=== PATIENT | male | born 1975 | race Caucasian/White ===

== ENCOUNTER 2018-09-25 13:40 | Emergency (ER) | payer OTHER, MEDICAID, SELFPAY ==
[2018-09-25 13:53] VITALS: BP 132/79; PULSE 86; RESP 18; TEMP 36.6; O2SAT 97; BMI 30.8
[2018-09-25] MEDS: SODIUM CHLORIDE 0.9% 1,000 ML 1000 ML IV (14:30)
[2018-09-25 14:31] LABS: Add Manual Diff / Slide Review NO; Basophils Absolute Auto 0 /uL (0-100); Basophils Percent Auto 0.4 % (0-2); Eosinophils Absolute Auto 100 /uL (0-450); Eosinophils Percent Auto 1.2 % (2-4); Hematocrit 43.7 % (41-53); Hemoglobin 15.2 g/dL (13.5-17.5); Lymphocytes Absolute Auto 2400 /uL (1100-4500); Lymphocytes Percent Auto 26.8 % (25-40); Mean Corpuscular HGB Conc 34.7 % (30-36); Mean Corpuscular Hemoglobin 30.8 PG (26-34); Mean Corpuscular Volume 88.8 fL (80-100); Monocytes Absolute Auto 500 /uL (0-900); Monocytes Percent Auto 5.4 % (3-14); Neutrophils Absolute Auto 5800 /uL (1500-7000); Neutrophils Percent Auto 66.2 % (50-75); Platelet Count 264 X10^3/uL (150-400); Red Blood Cell Count 4.92 X10^6/uL (4.5-5.9); Red Cell Distribution Width 12.2 % (11.6-14.8); White Blood Cell Count 8.8 X10^3/uL (4.5-11.0)
[2018-09-25 14:45] LABS: BUN Creatinine Ratio 18.9 (6-22); Blood Urea Nitrogen 17 mg/dL (9-20); Carbon Dioxide 26 mmol/L (22-32); Chloride 103 mmol/L (98-107); Estimated Glomerular Filt Rate > 60.0 mL/min (>60); Glucose 109 mg/dL (70-100); HEMOLYSIS < 15 (0-50); Potassium 4.4 mmol/L (3.4-5.1); Sodium 139 mmol/L (137-145)
[2018-09-25 16:59] VITALS: BP 128/75; PULSE 85; RESP 16; O2SAT 98
--- NOTE | 2018-09-25 17:30 | DI.CT.S_ITS ---
PROCEDURE: CT HEAD/BRAIN WO CON INDICATIONS: dizziness, visual changes TECHNIQUE: Noncontrast 4.5 mm thick angled axial sections acquired from the foramen magnum to the vertex, with coronal and sagittal reformats. For radiation dose reduction, the following was used: automated exposure control, adjustment of mA and/or kV according to patient size. COMPARISON: [facility], CT, CT HEAD WITHOUT CONTRAST, 06/17/2017, 16:05. FINDINGS: Image quality: Excellent. CSF spaces: Basal cisterns are patent. No extra-axial fluid collections. Ventricles are normal in size and shape. Brain: No midline shift. No intracranial masses or hemorrhage. Woodruff-white matter interface is normal. Skull and face: Calvarium and visualized facial bones are intact, without suspicious lesions. Sinuses: Visualized sinuses and mastoids are clear. IMPRESSION: 1. No acute intracranial abnormalities. Dictated by: Peter Graham M.D. on 09/25/2018 at 19:00 Approved by: Peter Graham M.D. on 09/25/2018 at 19:02
[2018-09-25 17:33] VITALS: BP 120/73; PULSE 76; RESP 17; O2SAT 96
[2018-09-25] MEDS: MECLIZINE HCL 12.5 MG TABLET 25 MG PO (17:48)
--- NOTE | 2018-09-25 19:49 | ED.DIZZY ---
HPI - Dizziness <TIFFANIE Palmer - Last Filed: 09/26/18 01:59> General Chief Complaint: Dizziness Stated Complaint: lightheaded,dizzy,visual aura Time Seen by Provider: 09/25/18 16:56 Source: patient and family Mode of arrival: ambulatory Limitations: no limitations History of Present Illness HPI Narrative: This is a 42-year-old male, smoker, who presents with his father with chief complain of lightheadedness, dizziness and he feels the floor is moving, intermittent nonbloody diarrhea for 2 week with low abdominal cramps, visual auras such as sparkles in dark and light hues. He reports his diarrhea is average 2 to 4 times a day. She states he has diarrhea episode about every 2 months or so but usually lasts 1 week. He denies any urinary symptoms or decreased urine output. He denies chest pain, breathing difficulty, fever, emesis, epigastric pain, decreased vision. The patient also reports head pressure but no acute pain. He reports nasal congestion and postnasal drips but denies known to have seasonal allergy or having sore throat. He reports he has been suffering from dizziness for last couple of years and had follow-up with ENT specialist, associate professor of communication and had a workup done. He states was let go from his job recently due to his problem with the dizziness. He at times is unable to drive due to intermittent severe dizziness. He also reports having migraine headache a couple of times a year. Related Data Home Medications Medication Instructions Recorded Confirmed buspirone 10 mg PO DAILY 09/25/18 09/25/18 lisinopril 40 mg PO DAILY 09/25/18 09/25/18 metoprolol succinate 25 mg PO DAILY 09/25/18 09/25/18 Allergies Allergy/AdvReac Type Severity Reaction Status Date / Time Penicillins Allergy Verified 09/25/18 13:53 Review of Systems <TIFFANIE Palmer - Last Filed: 09/26/18 01:59> Review of Systems General: See HPI HEENT: See HPI Respiratory: Denies dyspnea, cough, wheezing, hemoptysis, sputum. Cardiovascular: Denies chest pain, palpitations, orthopnea, edema. Gastrointestinal: See HPI : See HPI Musculoskeletal: Denies weakness, joint pain or bony pain. Skin: Denies rash, skin lesions, or other. Neurologic: Denies weakness, headache, numbness, change in speech, confusion, seizures, incoordination. Psychiatric: No concerning psychosocial issues. 12-point review of systems is negative except for those stated above. PFSH <TIFFANIE Palmer - Last Filed: 09/26/18 01:59> Medical History (Updated 09/26/18 @ 01:37 by TIFFANIE Palmer) HTN (hypertension) (Acute) SVT (supraventricular tachycardia) (Acute) Social History Smoking Status: Current every day smoker Social History Smoking Status: Current every day smoker Exam <TIFFANIE Palmer - Last Filed: 09/26/18 01:59> Narrative Exam Narrative: GEN: Alert, oriented x 3, well appearing and nourished, and in no acute distress. Head: Normal cephalic, atraumatic. No scalp or temporal tenderness, palpable mass or rash. EYES: Pupils are equal, round, and reactive to light and accommodation. Extraocular muscles are intact bilaterally. There is no subconjunctival hemorrhage, exudate and sclera non-icteric. ENT: Bilateral auditory canals and tympanic membranes. Hearing grossly intact. Nose without bleeding. Purulent dischargein R nare, No septal hematoma or deviation. Turbinate with erythema or swelling. Facial sinuses nontender to palpate. Mucous membrane moist, no mucosal lesion. Throat without erythema, tonsillar hypertrophy or exudate. Uvula in midline, airway patent. Neck: Trachea in midline. No JVD, non-tender without lymphadenopathy. No masses or thyroid megaly. Supple, non-tender and no meningeal signs. CARDIAC: Normal regular rate and rhythm without murmurs, gallops, or rubs. No chest wall tenderness. No peripheral edema, cyanosis or pallor. Capillary refill is less than 2 seconds. No carotid bruits. RESPIRATORY: Lungs are cleat to auscultate bilaterally. No cough, wheezes, rales, or rhonchi. No stridor, respiratory distress, increase work of breathing, or accessary muscle used. ABD: Abdomen soft, nontender and non-distended. No guarding or rebound tenderness to palpate. Bowel sounds are normal in all 4 quadrants. There is no palpable masses or organomegaly. EXT: Full painless ROM of all extremities with no loss of sensation, strength, effusion or edema. SKIN: Warm, dry, normal color for patient. No erythema, lesions or rash. BACK: Nontender without deformity or crepitance. No flank tenderness. NEUROLOGICAL: Alert and oriented to place, time and person. Sensation and motor function intact bilaterally. No facial droops, dysphasia. CN2-12 grossly intact bilaterally. PSYCHIATRIC: Good judgement and reason, without hallucinations, abnormal affect or abnormal behaviors during the examination. Initial Vital Signs Initial Vital Signs: Vital Signs Temperature 97.9 F 09/25/18 13:53 Pulse Rate 86 09/25/18 13:53 Respiratory Rate 18 09/25/18 13:53 Blood Pressure 132/79 09/25/18 13:53 Pulse Oximetry 97 09/25/18 13:53 <Maeve Marlow DO - Last Filed: 09/27/18 18:27> Initial Vital Signs Initial Vital Signs: Vital Signs Temperature 97.9 F 09/25/18 13:53 Pulse Rate 86 09/25/18 13:53 Respiratory Rate 18 09/25/18 13:53 Blood Pressure 132/79 09/25/18 13:53 Pulse Oximetry 97 09/25/18 13:53 Course <TIFFANIE Palmer - Last Filed: 09/26/18 01:59> Orders Ordered: Discontinued Medications Sodium Chloride (Normal Saline 0.9%) 1,000 mls @ 1,000 mls/hr IV BOLUS ONE Stop: 09/25/18 15:07 Last Infusion: 09/25/18 15:49 Dose: 0 mls/hr Admin: 09/25/18 14:30 Dose: 1,000 mls/hr Meclizine HCl (Antivert) 25 mg PO NOW ONE Stop: 09/25/18 17:26 Last Admin: 09/25/18 17:48 Dose: 25 mg Vital Signs - 8 hr 09/25/18 17:33 Pulse Rate 76 Respiratory Rate 17 Blood Pressure [Right Arm] 120/73 Pulse Oximetry 96 <Maeve Marlow DO - Last Filed: 09/27/18 18:27> Orders Ordered: Discontinued Medications Sodium Chloride (Normal Saline 0.9%) 1,000 mls @ 1,000 mls/hr IV BOLUS ONE Stop: 09/25/18 15:07 Last Infusion: 09/25/18 15:49 Dose: 0 mls/hr Admin: 09/25/18 14:30 Dose: 1,000 mls/hr Meclizine HCl (Antivert) 25 mg PO NOW ONE Stop: 09/25/18 17:26 Last Admin: 09/25/18 17:48 Dose: 25 mg Vital Signs - 8 hr 09/25/18 17:33 Pulse Rate 76 Respiratory Rate 17 Blood Pressure [Right Arm] 120/73 Pulse Oximetry 96 MDM - Dizziness <TIFFANIE Palmer - Last Filed: 09/26/18 01:59> Differential Diagnosis Likely benign paroxysmal positional vertigo, orthostatic hypotension, transient cerebral ischemia and other (brain mass, dehydration) Medical Records Attestation: I reviewed the patient's medical records. Lab Data Attestation: I reviewed the patient's lab results. Result diagrams: 09/25/18 14:20 09/25/18 14:20 Lab Results 09/25/18 09/25/18 Range/Units 14:20 14:20 WBC 8.8 (4.5-11.0) X10^3/uL RBC 4.92 (4.5-5.9) X10^6/uL Hgb 15.2 (13.5-17.5) g/dL Hct 43.7 (41-53) % MCV 88.8 (80-100) fL MCH 30.8 (26-34) PG MCHC 34.7 (30-36) % RDW 12.2 (11.6-14.8) % Plt Count 264 (150-400) X10^3/uL Neut % (Auto) 66.2 (50-75) % Lymph % (Auto) 26.8 (25-40) % Holmes % (Auto) 5.4 (3-14) % Eos % (Auto) 1.2 L (2-4) % Baso % (Auto) 0.4 (0-2) % Neut # (Auto) 5800 (0726-0456) /uL Lymph # (Auto) 2400 (0501-4508) /uL Holmes # (Auto) 500 (0-900) /uL Eos # (Auto) 100 (0-450) /uL Baso # (Auto) 0 (0-100) /uL Sodium 139 (137-145) mmol/L Potassium 4.4 (3.4-5.1) mmol/L Chloride 103 (98-107) mmol/L Carbon Dioxide 26 (22-32) mmol/L BUN 17 (9-20) mg/dL Creatinine 0.90 (0.66-1.25) mg/dL Estimated GFR > 60.0 (>60) mL/min BUN/Creatinine Ratio 18.9 (6-22) Glucose 109 H (70-100) mg/dL Calcium 10.0 (8.4-10.2) mg/dL Urine Dip Bedside Urine Glucose Negative Bedside Urine Bilirubin - Negative Bedside Urine Ketone +/- 5 Urine Specific [place] 1.020 Bedside Urine Occult Blood - Negative Bedside Urine pH 6.0 Bedside Urine Protein - Negative Bedside Urine Urobilinogen - Negative Bedside Urine Nitrite - Negative Bedside Urine Leukocytes - Negative Esterase Imaging Data CT scan - head: Radiologist's impression: [address] [address] [address] Scan Report Signed Patient: Andre Salas WMR#: [id number] : 1975Acct:[id number] Age/Sex: 42 / MDate of Service: 09/25/18 Loc: ED Accession Number: [id number] Procedure: CT head/brain wo con Ordering Provider: Teofilo Pruitt PROCEDURE: CT HEAD/BRAIN WO CON INDICATIONS: dizziness, visual changes TECHNIQUE: Noncontrast 4.5 mm thick angled axial sections acquired from the foramen magnum to the vertex, with coronal and sagittal reformats. For radiation dose reduction, the following was used: automated exposure control, adjustment of mA and/or kV according to patient size. COMPARISON: [facility], CT, CT HEAD WITHOUT CONTRAST, 06/17/2017, 16:05. FINDINGS: Image quality: Excellent. CSF spaces: Basal cisterns are patent. No extra-axial fluid collections. Ventricles are normal in size and shape. Brain: No midline shift. No intracranial masses or hemorrhage. Woodruff-white matter interface is normal. Skull and face: Calvarium and visualized facial bones are intact, without suspicious lesions. Sinuses: Visualized sinuses and mastoids are clear. IMPRESSION: 1. No acute intracranial abnormalities. Dictated by: Peter Graham M.D. on 09/25/2018 at 19:00 Approved by: Peter Graham M.D. on 09/25/2018 at 19:02 ECG Data Attestation: I personally reviewed and interpreted this ECG as follows: Prior ECG tracings: not available for review Interpretation: Sinus rhythm rate in 69, normal [place], no ST elevation or depression MDM Narrative Medical decision making narrative: This is a 42-year-old gentleman who presented to ED with his father in chief complaint of dizziness, mild nausea, visual aura, diarrhea for last 2 weeks with mild abdominal cramping discomfort, sinus drainage and pressure. He endorses no constitutional symptoms such as fever chills vomiting. The patient reports there is no acute or major changes from his previous dizziness symptoms. He was recently that go from his job due to not being able to perform because of dizziness. He follows up with Dr. Dang and [facility] and is hoping to find a medical provider. He was evaluated by ENT specialist and was told he does not have vertigo. He also was evaluated by associate professor of communication for his dizziness, then he was diagnosed with SVT and hypertension which now he is getting treated with lisinopril and metoprolol. He reports feeling improved with lightheadedness and visual aura after receiving 1 L of IV fluid. Patient was medicated with meclizine 25 mg but reports there was not much of improvement. Head CT was obtained and indicates no acute intracranial findings and his sinus and mastoids are clear. I discussed in length with patient and his father of test findings. They both verbalized understanding to follow up with primary care physician for further evaluation and treatment. [facility] resources contact phone number was provided to patient as requested. Patient is in no acute distress at the time of discharge. Return to ED precautions were reviewed with patient. The patient's diarrhea is not to be concerned for him at this time and he thinks it may be related to food allergies that he does not aware. <Maeve Marlow, - Last Filed: 09/27/18 18:27> Lab Data Lab Results 09/25/18 09/25/18 Range/Units 14:20 14:20 WBC 8.8 (4.5-11.0) X10^3/uL RBC 4.92 (4.5-5.9) X10^6/uL Hgb 15.2 (13.5-17.5) g/dL Hct 43.7 (41-53) % MCV 88.8 (80-100) fL MCH 30.8 (26-34) PG MCHC 34.7 (30-36) % RDW 12.2 (11.6-14.8) % Plt Count 264 (150-400) X10^3/uL Neut % (Auto) 66.2 (50-75) % Lymph % (Auto) 26.8 (25-40) % Holmes % (Auto) 5.4 (3-14) % Eos % (Auto) 1.2 L (2-4) % Baso % (Auto) 0.4 (0-2) % Neut # (Auto) 5800 (7242-3845) /uL Lymph # (Auto) 2400 (8052-7841) /uL Holmes # (Auto) 500 (0-900) /uL Eos # (Auto) 100 (0-450) /uL Baso # (Auto) 0 (0-100) /uL Sodium 139 (137-145) mmol/L Potassium 4.4 (3.4-5.1) mmol/L Chloride 103 (98-107) mmol/L Carbon Dioxide 26 (22-32) mmol/L BUN 17 (9-20) mg/dL Creatinine 0.90 (0.66-1.25) mg/dL Estimated GFR > 60.0 (>60) mL/min BUN/Creatinine Ratio 18.9 (6-22) Glucose 109 H (70-100) mg/dL Calcium 10.0 (8.4-10.2) mg/dL Urine Dip Bedside Urine Glucose Negative Bedside Urine Bilirubin - Negative Bedside Urine Ketone +/- 5 Urine Specific [place] 1.020 Bedside Urine Occult Blood - Negative Bedside Urine pH 6.0 Bedside Urine Protein - Negative Bedside Urine Urobilinogen - Negative Bedside Urine Nitrite - Negative Bedside Urine Leukocytes - Negative Esterase Discharge Plan Departure Patient Disposition: Home Clinical Impression: Dizziness Diarrhea Qualifiers: Diarrhea type: unspecified type Qualified Code(s): R19.7 - Diarrhea, unspecified Discharge Date/Time: 09/25/18 20:10 Interventions: ED Discharge Assessment Last Done: 09/25/18 20:09 Instructions: DI for Abdominal Pain-Adult, DI for Dizziness-Nonvertigo Activity Restrictions/Additional Instructions: You have been diagnosed with [ dizziness, abdominal cramping pain and diarrhea, nasal congestion. There no acute finding per today's head CT. You're blood test looks good as well. Says IV fluid help you with your dizziness and vision problem you might have been mildly dehydrated]. What to do: *Take your medications as directed. AT this time, no new medication to go home since the Meclizine had not help with your symptoms. Your nose appears to be congested per exam today. *Follow up with your primary care provider in 2-3 days, call for an appointment. Let them know you were seen in the ED and that we asked you to be seen in follow up. *Return to ED if you have any new, worsening, or concerning symptoms, such as [worsening dizziness, nausea/vomiting, extremity weakness, severe headache, unable to tolerate fluids, chest pain, breathing difficulty, fainting episodes, any acute concerns]. Prescriptions: No Action lisinopril 10 mg Tablet 40 mg PO DAILY RF: 0 metoprolol succinate 25 mg Baljinder Fonseca,Er 24hr Dose Pack 25 mg PO DAILY RF: 0 buspirone 10 mg Tablet 10 mg PO DAILY RF: 0 Referrals: [facility] Resources [Outside] <Maeve Marlow DO - Last Filed: 09/27/18 18:27> Cosign ED Attending Cosignature Attestation: I was immediately available in the department for consultation. This documentation has been reviewed and I agree with assessment and plan. Supervised by Maeve Marlow DO
--- NOTE | 2018-09-26 01:59 | ED_ITS ---
HPI - Dizziness <TIFFANIE Palmer - Last Filed: 09/26/18 01:59> General Chief Complaint: Dizziness Stated Complaint: lightheaded,dizzy,visual aura Time Seen by Provider: 09/25/18 16:56 Source: patient and family Mode of arrival: ambulatory Limitations: no limitations History of Present Illness HPI Narrative: This is a 42-year-old male, smoker, who presents with his father with chief complain of lightheadedness, dizziness and he feels the floor is moving, intermittent nonbloody diarrhea for 2 week with low abdominal cramps, visual auras such as sparkles in dark and light hues. He reports his diarrhea is average 2 to 4 times a day. She states he has diarrhea episode about every 2 months or so but usually lasts 1 week. He denies any urinary symptoms or decreased urine output. He denies chest pain, breathing difficulty, fever, emesis, epigastric pain, decreased vision. The patient also reports head pressure but no acute pain. He reports nasal congestion and postnasal drips but denies known to have seasonal allergy or having sore throat. He reports he has been suffering from dizziness for last couple of years and had follow-up with ENT specialist, console attendant and had a workup done. He states was let go from his job recently due to his problem with the dizziness. He at times is unable to drive due to intermittent severe dizziness. He also reports having migraine headache a couple of times a year. Related Data Home Medications Medication Instructions Recorded Confirmed buspirone 10 mg PO DAILY 09/25/18 09/25/18 lisinopril 40 mg PO DAILY 09/25/18 09/25/18 metoprolol succinate 25 mg PO DAILY 09/25/18 09/25/18 Allergies Allergy/AdvReac Type Severity Reaction Status Date / Time Penicillins Allergy Verified 09/25/18 13:53 Review of Systems <TIFFANIE Palmer - Last Filed: 09/26/18 01:59> Review of Systems General: See HPI HEENT: See HPI Respiratory: Denies dyspnea, cough, wheezing, hemoptysis, sputum. Cardiovascular: Denies chest pain, palpitations, orthopnea, edema. Gastrointestinal: See HPI : See HPI Musculoskeletal: Denies weakness, joint pain or bony pain. Skin: Denies rash, skin lesions, or other. Neurologic: Denies weakness, headache, numbness, change in speech, confusion, seizures, incoordination. Psychiatric: No concerning psychosocial issues. 12-point review of systems is negative except for those stated above. PFSH <TIFFANIE Palmer - Last Filed: 09/26/18 01:59> Medical History (Updated 09/26/18 @ 01:37 by TIFFANIE Palmer) HTN (hypertension) (Acute) SVT (supraventricular tachycardia) (Acute) Social History Smoking Status: Current every day smoker Social History Smoking Status: Current every day smoker Exam <TIFFANIE Palmer - Last Filed: 09/26/18 01:59> Narrative Exam Narrative: GEN: Alert, oriented x 3, well appearing and nourished, and in no acute distress. Head: Normal cephalic, atraumatic. No scalp or temporal tenderness, palpable mass or rash. EYES: Pupils are equal, round, and reactive to light and accommodation. Extraocular muscles are intact bilaterally. There is no subconjunctival hemorrhage, exudate and sclera non-icteric. ENT: Bilateral auditory canals and tympanic membranes. Hearing grossly intact. Nose without bleeding. Purulent dischargein R nare, No septal hematoma or deviation. Turbinate with erythema or swelling. Facial sinuses nontender to palpate. Mucous membrane moist, no mucosal lesion. Throat without erythema, tonsillar hypertrophy or exudate. Uvula in midline, airway patent. Neck: Trachea in midline. No JVD, non-tender without lymphadenopathy. No masses or thyroid megaly. Supple, non-tender and no meningeal signs. CARDIAC: Normal regular rate and rhythm without murmurs, gallops, or rubs. No chest wall tenderness. No peripheral edema, cyanosis or pallor. Capillary refill is less than 2 seconds. No carotid bruits. RESPIRATORY: Lungs are cleat to auscultate bilaterally. No cough, wheezes, rales, or rhonchi. No stridor, respiratory distress, increase work of breathing, or accessary muscle used. ABD: Abdomen soft, nontender and non-distended. No guarding or rebound tenderness to palpate. Bowel sounds are normal in all 4 quadrants. There is no palpable masses or organomegaly. EXT: Full painless ROM of all extremities with no loss of sensation, strength, effusion or edema. SKIN: Warm, dry, normal color for patient. No erythema, lesions or rash. BACK: Nontender without deformity or crepitance. No flank tenderness. NEUROLOGICAL: Alert and oriented to place, time and person. Sensation and motor function intact bilaterally. No facial droops, dysphasia. CN2-12 grossly intact bilaterally. PSYCHIATRIC: Good judgement and reason, without hallucinations, abnormal affect or abnormal behaviors during the examination. Initial Vital Signs Initial Vital Signs: Vital Signs Temperature 97.9 F 09/25/18 13:53 Pulse Rate 86 09/25/18 13:53 Respiratory Rate 18 09/25/18 13:53 Blood Pressure 132/79 09/25/18 13:53 Pulse Oximetry 97 09/25/18 13:53 <Maeve Marlow DO - Last Filed: 09/27/18 18:27> Initial Vital Signs Initial Vital Signs: Vital Signs Temperature 97.9 F 09/25/18 13:53 Pulse Rate 86 09/25/18 13:53 Respiratory Rate 18 09/25/18 13:53 Blood Pressure 132/79 09/25/18 13:53 Pulse Oximetry 97 09/25/18 13:53 Course <TIFFANIE Palmer - Last Filed: 09/26/18 01:59> Orders Ordered: Discontinued Medications Sodium Chloride (Normal Saline 0.9%) 1,000 mls @ 1,000 mls/hr IV BOLUS ONE Stop: 09/25/18 15:07 Last Infusion: 09/25/18 15:49 Dose: 0 mls/hr Admin: 09/25/18 14:30 Dose: 1,000 mls/hr Meclizine HCl (Antivert) 25 mg PO NOW ONE Stop: 09/25/18 17:26 Last Admin: 09/25/18 17:48 Dose: 25 mg Vital Signs - 8 hr 09/25/18 17:33 Pulse Rate 76 Respiratory Rate 17 Blood Pressure [Right Arm] 120/73 Pulse Oximetry 96 <Maeve Marlow DO - Last Filed: 09/27/18 18:27> Orders Ordered: Discontinued Medications Sodium Chloride (Normal Saline 0.9%) 1,000 mls @ 1,000 mls/hr IV BOLUS ONE Stop: 09/25/18 15:07 Last Infusion: 09/25/18 15:49 Dose: 0 mls/hr Admin: 09/25/18 14:30 Dose: 1,000 mls/hr Meclizine HCl (Antivert) 25 mg PO NOW ONE Stop: 09/25/18 17:26 Last Admin: 09/25/18 17:48 Dose: 25 mg Vital Signs - 8 hr 09/25/18 17:33 Pulse Rate 76 Respiratory Rate 17 Blood Pressure [Right Arm] 120/73 Pulse Oximetry 96 MDM - Dizziness <TIFFANIE Palmer - Last Filed: 09/26/18 01:59> Differential Diagnosis Likely benign paroxysmal positional vertigo, orthostatic hypotension, transient cerebral ischemia and other (brain mass, dehydration) Medical Records Attestation: I reviewed the patient's medical records. Lab Data Attestation: I reviewed the patient's lab results. Result diagrams: 09/25/18 14:20 09/25/18 14:20 Lab Results 09/25/18 09/25/18 Range/Units 14:20 14:20 WBC 8.8 (4.5-11.0) X10^3/uL RBC 4.92 (4.5-5.9) X10^6/uL Hgb 15.2 (13.5-17.5) g/dL Hct 43.7 (41-53) % MCV 88.8 (80-100) fL MCH 30.8 (26-34) PG MCHC 34.7 (30-36) % RDW 12.2 (11.6-14.8) % Plt Count 264 (150-400) X10^3/uL Neut % (Auto) 66.2 (50-75) % Lymph % (Auto) 26.8 (25-40) % [place] % (Auto) 5.4 (3-14) % Eos % (Auto) 1.2 L (2-4) % Baso % (Auto) 0.4 (0-2) % Neut # (Auto) 5800 (3467-4114) /uL Lymph # (Auto) 2400 (7720-1928) /uL [place] # (Auto) 500 (0-900) /uL Eos # (Auto) 100 (0-450) /uL Baso # (Auto) 0 (0-100) /uL Sodium 139 (137-145) mmol/L Potassium 4.4 (3.4-5.1) mmol/L Chloride 103 (98-107) mmol/L Carbon Dioxide 26 (22-32) mmol/L BUN 17 (9-20) mg/dL Creatinine 0.90 (0.66-1.25) mg/dL Estimated GFR > 60.0 (>60) mL/min BUN/Creatinine Ratio 18.9 (6-22) Glucose 109 H (70-100) mg/dL Calcium 10.0 (8.4-10.2) mg/dL Urine Dip Bedside Urine Glucose Negative Bedside Urine Bilirubin - Negative Bedside Urine Ketone +/- 5 Urine Specific [place] 1.020 Bedside Urine Occult Blood - Negative Bedside Urine pH 6.0 Bedside Urine Protein - Negative Bedside Urine Urobilinogen - Negative Bedside Urine Nitrite - Negative Bedside Urine Leukocytes - Negative Esterase Imaging Data CT scan - head: Radiologist's impression: [address] [address] [address] Scan Report Signed Patient: Andre Salas WMR#: [id number] : 1975Acct:[id number] Age/Sex: 42 / MDate of Service: 09/25/18 Loc: ED Accession Number: [id number] Procedure: CT head/brain wo con Ordering Provider: Teofilo Pruitt PROCEDURE: CT HEAD/BRAIN WO CON INDICATIONS: dizziness, visual changes TECHNIQUE: Noncontrast 4.5 mm thick angled axial sections acquired from the foramen magnum to the vertex, with coronal and sagittal reformats. For radiation dose reduction, the following was used: automated exposure control, adjustment of mA and/or kV according to patient size. COMPARISON: [facility], CT, CT HEAD WITHOUT CONTRAST, 06/17/2017, 16:05. FINDINGS: Image quality: Excellent. CSF spaces: Basal cisterns are patent. No extra-axial fluid collections. Ventricles are normal in size and shape. Brain: No midline shift. No intracranial masses or hemorrhage. [place]-white matter interface is normal. Skull and face: Calvarium and visualized facial bones are intact, without suspicious lesions. Sinuses: Visualized sinuses and mastoids are clear. IMPRESSION: 1. No acute intracranial abnormalities. Dictated by: Peter Graham M.D. on 09/25/2018 at 19:00 Approved by: Peter Graham M.D. on 09/25/2018 at 19:02 ECG Data Attestation: I personally reviewed and interpreted this ECG as follows: Prior ECG tracings: not available for review Interpretation: Sinus rhythm rate in 69, normal Fitzgerald, no ST elevation or depression MDM Narrative Medical decision making narrative: This is a 42-year-old gentleman who presented to ED with his father in chief complaint of dizziness, mild nausea, visual aura, diarrhea for last 2 weeks with mild abdominal cramping discomfort, sinus drainage and pressure. He endorses no constitutional symptoms such as fever chills vomiting. The patient reports there is no acute or major changes from his previous dizziness symptoms. He was recently that go from his job due to not being able to perform because of dizziness. He follows up with Dr. Dang and [facility] and is hoping to find a medical provider. He was evaluated by ENT specialist and was told he does not have vertigo. He also was evaluated by console attendant for his dizziness, then he was diagnosed with SVT and hypertension which now he is getting treated with lisinopril and metoprolol. He reports feeling improved with lightheadedness and visual aura after receiving 1 L of IV fluid. Patient was medicated with meclizine 25 mg but reports there was not much of improvement. Head CT was obtained and indicates no acute intracranial findings and his sinus and mastoids are clear. I discussed in length with patient and his father of test findings. They both verbalized understanding to follow up with primary care physician for further evaluation and treatment. [facility] resources contact phone number was provided to patient as requested. Patient is in no acute distress at the time of discharge. Return to ED precautions were reviewed with patient. The patient's diarrhea is not to be concerned for him at this time and he thinks it may be related to food allergies that he does not aware. <Maeve Marlow, - Last Filed: 09/27/18 18:27> Lab Data Lab Results 09/25/18 09/25/18 Range/Units 14:20 14:20 WBC 8.8 (4.5-11.0) X10^3/uL RBC 4.92 (4.5-5.9) X10^6/uL Hgb 15.2 (13.5-17.5) g/dL Hct 43.7 (41-53) % MCV 88.8 (80-100) fL MCH 30.8 (26-34) PG MCHC 34.7 (30-36) % RDW 12.2 (11.6-14.8) % Plt Count 264 (150-400) X10^3/uL Neut % (Auto) 66.2 (50-75) % Lymph % (Auto) 26.8 (25-40) % [place] % (Auto) 5.4 (3-14) % Eos % (Auto) 1.2 L (2-4) % Baso % (Auto) 0.4 (0-2) % Neut # (Auto) 5800 (3023-2496) /uL Lymph # (Auto) 2400 (4517-2408) /uL [place] # (Auto) 500 (0-900) /uL Eos # (Auto) 100 (0-450) /uL Baso # (Auto) 0 (0-100) /uL Sodium 139 (137-145) mmol/L Potassium 4.4 (3.4-5.1) mmol/L Chloride 103 (98-107) mmol/L Carbon Dioxide 26 (22-32) mmol/L BUN 17 (9-20) mg/dL Creatinine 0.90 (0.66-1.25) mg/dL Estimated GFR > 60.0 (>60) mL/min BUN/Creatinine Ratio 18.9 (6-22) Glucose 109 H (70-100) mg/dL Calcium 10.0 (8.4-10.2) mg/dL Urine Dip Bedside Urine Glucose Negative Bedside Urine Bilirubin - Negative Bedside Urine Ketone +/- 5 Urine Specific [place] 1.020 Bedside Urine Occult Blood - Negative Bedside Urine pH 6.0 Bedside Urine Protein - Negative Bedside Urine Urobilinogen - Negative Bedside Urine Nitrite - Negative Bedside Urine Leukocytes - Negative Esterase Discharge Plan Departure Patient Disposition: Home Clinical Impression: Dizziness Diarrhea Qualifiers: Diarrhea type: unspecified type Qualified Code(s): R19.7 - Diarrhea, unspecified Discharge Date/Time: 09/25/18 20:10 Interventions: ED Discharge Assessment Last Done: 09/25/18 20:09 Instructions: DI for Abdominal Pain-Adult, DI for Dizziness-Nonvertigo Activity Restrictions/Additional Instructions: You have been diagnosed with [ dizziness, abdominal cramping pain and diarrhea, nasal congestion. There no acute finding per today's head CT. You're blood test looks good as well. Says IV fluid help you with your dizziness and vision problem you might have been mildly dehydrated]. What to do: *Take your medications as directed. AT this time, no new medication to go home since the Meclizine had not help with your symptoms. Your nose appears to be congested per exam today. *Follow up with your primary care provider in 2-3 days, call for an appointment. Let them know you were seen in the ED and that we asked you to be seen in follow up. *Return to ED if you have any new, worsening, or concerning symptoms, such as [ worsening dizziness, nausea/vomiting, extremity weakness, severe headache, unable to tolerate fluids, chest pain, breathing difficulty, fainting episodes, any acute concerns]. Prescriptions: No Action lisinopril 10 mg Tablet 40 mg PO DAILY RF: 0 metoprolol succinate 25 mg Baljinder Fonseca,Er 24hr Dose Pack 25 mg PO DAILY RF: 0 buspirone 10 mg Tablet 10 mg PO DAILY RF: 0 Referrals: [facility] [Outside] <Maeve Marlow DO - Last Filed: 09/27/18 18:27> Cosign ED Attending Cosignature Attestation: I was immediately available in the department for consultation. This documentation has been reviewed and I agree with assessment and plan. Supervised by Maeve Marlow DO
== END 2018-09-25 20:10 | disposition home or self-care (01) ==
PROVIDERS: Emergency Medicine; Emergency Provider Nurse Practitioner Family
DX: R42 Dizziness and giddiness (principal); R19.7 Diarrhea, unspecified
CPT/HCPCS: 36591; 70450; 80048; 81003; 85025; 93005; 93010; 96360; 99283; 99285

== ENCOUNTER → 2019-11-05 14:00 | Outpatient (CLI) | payer OTHER, MEDICAID, SELFPAY ==
--- NOTE | 2019-11-05 14:02 | DI.RAD.S_ITS ---
PROCEDURE: XR RIBS RT MIN 3V W CXR 1V INDICATIONS: pain in right side of ribs TECHNIQUE: 2 views of the right ribs were acquired, along with a single view chest. COMPARISON: [facility], , XR CHEST 1 VIEW, 04/30/2019, 16:13. FINDINGS: Surgical changes and devices: Incidental note is made of a metallic body ornamentation artifact. Bones and chest wall: A marker is placed upon the area of clinical concern. Within this region, no displaced rib fracture or other significant rib abnormality can be seen. No rib fractures are seen elsewhere. No suspicious bony lesions. Overlying soft tissues appear unremarkable. Lungs and pleura: No pleural effusions or pneumothorax. Lungs appear clear. Mediastinum: Mediastinal contours appear normal. Heart size is normal. IMPRESSION: No displaced fractures can be seen. No pneumothorax is seen. Dictated by: Dangelo Weinberg M.D. on 11/05/2019 at 13:25 Approved by: Dangelo Weinberg M.D. on 11/05/2019 at 13:25
== END ==
PROVIDERS: Referring Provider Nurse Practitioner; Visit Provider Nurse Practitioner
DX: R07.81 Pleurodynia (principal)
CPT/HCPCS: 71101

== ENCOUNTER → 2020-04-01 14:06 | Outpatient (CLI) | payer OTHER, SELFPAY ==
--- NOTE | 2020-04-01 14:08 | DI.RAD.S_ITS ---
PROCEDURE: XR LUMBAR SPINE 2-3V INDICATIONS: Chronic low back pain TECHNIQUE: 3 views of the lumbar spine were acquired. COMPARISON: [facility], CR, XR CHEST 1 VIEW, 04/30/2019, 16:13. FINDINGS: Bones: 5 [id number] vertebrae are present. Possible transitional anatomy with prominent S1-S2 disc. There is normal bony alignment. No vertebral body compression fractures. No suspicious bony lesions. There is mild degenerative disc disease throughout the lumbar spine. Moderate facet arthropathy at L5-S1, and mild facet arthropathy at L4-L5. Soft tissues: Overlying bowel gas pattern is normal. No suspicious soft tissue calcifications. IMPRESSION: 1. Mild degenerative disc and facet disease as described. 2. Possible transitional anatomy. Dictated by: Peter Graham M.D. on 04/01/2020 at 15:59 Approved by: Peter Graham M.D. on 04/01/2020 at 16:03
== END ==
PROVIDERS: PCP Family Medicine; Referring Provider Family Medicine; Visit Provider Family Medicine
DX: M54.5 Low back pain (principal); M51.36 Other intervertebral disc degeneration, lumbar region; M47.817 Spondylosis without myelopathy or radiculopathy, lumbosacral region; G89.29 Other chronic pain; M47.816 Spondylosis without myelopathy or radiculopathy, lumbar region
CPT/HCPCS: 72100

== ENCOUNTER → 2020-11-17 16:22 | Outpatient (CLI) | payer OTHER, MEDICAID, SELFPAY ==
[2020-11-17 17:58] LABS: Hemoglobin A1C% w Est Avg Glu 5.3 % (4.0-6.0)
[2020-11-17 18:19] LABS: Creatinine Urine Random 125.9 mg/dL
[2020-11-17 18:20] LABS: Alanine Aminotransferase 33 IU/L (<50); Albumin 4.8 g/dL (3.5-5.0); Albumin Globulin Ratio 1.4 (1.0-2.8); Alkaline Phosphatase 102 U/L (38-126); Aspartate Aminotransferase 36 IU/L (17-59); BUN Creatinine Ratio 18.8 (6-22); Bilirubin Total 0.5 mg/dL (0.2-1.3); Blood Urea Nitrogen 16 mg/dL (9-20); Calcium 10.1 mg/dL (8.4-10.2); Carbon Dioxide 28 mmol/L (22-32); Chloride 102 mmol/L (98-107); Cholesterol 179 mg/dL (140-199); Estimated Glomerular Filt Rate > 60.0 mL/min (>60); Globulin 3.5 g/dL (1.7-4.1); Glucose 90 mg/dL (70-100); HDL Cholesterol 44 mg/dL (40-60); HEMOLYSIS < 15 (0-50); LDL Cholesterol Calculated 110 mg/dL (<100); Potassium 4.6 mmol/L (3.4-5.1); Sodium 138 mmol/L (137-145); Total Protein 8.3 g/dL (6.3-8.2); Triglycerides 123 mg/dL (35-150)
[2020-11-17 18:24] LABS: Add Manual Diff / Slide Review NO; Basophils Absolute Auto 0 /uL (0-100); Basophils Percent Auto 0.3 % (0-2); Eosinophils Absolute Auto 400 /uL (0-450); Eosinophils Percent Auto 3.1 % (2-4); Hematocrit 45.6 % (41-53); Hemoglobin 15.7 g/dL (13.5-17.5); Lymphocytes Absolute Auto 4100 /uL (1100-4500); Lymphocytes Percent Auto 34.4 % (25-40); Mean Corpuscular HGB Conc 34.4 % (30-36); Mean Corpuscular Hemoglobin 30.9 PG (26-34); Monocytes Absolute Auto 700 /uL (0-900); Monocytes Percent Auto 5.7 % (3-14); Neutrophils Absolute Auto 6800 /uL (1500-7000); Neutrophils Percent Auto 56.5 % (50-75); Platelet Count 269 X10^3/uL (150-400); Red Blood Cell Count 5.07 X10^6/uL (4.5-5.9); Red Cell Distribution Width 12.3 % (11.6-14.8)
[2020-11-17 18:39] LABS: Microalbumin Urine Random < 0.6 mg/dL (0-1.6)
[2020-11-17 18:50] LABS: Prostate Specific Antigen Scrn 1.09 ng/mL (0.1-4.0)
== END ==
PROVIDERS: PCP Family Medicine; Referring Provider Family Medicine; Visit Provider Family Medicine
DX: E78.5 Hyperlipidemia, unspecified (principal); I10 Essential (primary) hypertension; R73.9 Hyperglycemia, unspecified; Z12.5 Encounter for screening for malignant neoplasm of prostate
CPT/HCPCS: 36415; 80053; 80061; 82043; 82570; 83036; 85025; G0103

== ENCOUNTER → 2020-12-02 15:50 | Outpatient (CLI) | payer OTHER, MEDICAID, SELFPAY ==
[2020-12-02 16:17] LABS: Add Manual Diff / Slide Review NO; Basophils Absolute Auto 100 /uL (0-100); Basophils Percent Auto 0.5 % (0-2); Eosinophils Absolute Auto 300 /uL (0-450); Eosinophils Percent Auto 3.2 % (2-4); Hematocrit 44.8 % (41-53); Hemoglobin 15.3 g/dL (13.5-17.5); Lymphocytes Absolute Auto 3600 /uL (1100-4500); Lymphocytes Percent Auto 34.6 % (25-40); Mean Corpuscular HGB Conc 34.1 % (30-36); Mean Corpuscular Hemoglobin 30.9 PG (26-34); Mean Corpuscular Volume 90.5 fL (80-100); Monocytes Absolute Auto 600 /uL (0-900); Monocytes Percent Auto 6.1 % (3-14); Neutrophils Absolute Auto 5700 /uL (1500-7000); Neutrophils Percent Auto 55.6 % (50-75); Platelet Count 251 X10^3/uL (150-400); Red Blood Cell Count 4.96 X10^6/uL (4.5-5.9); Red Cell Distribution Width 12.4 % (11.6-14.8); White Blood Cell Count 10.3 X10^3/uL (4.5-11.0)
== END ==
PROVIDERS: PCP Family Medicine; Referring Provider Family Medicine; Visit Provider Family Medicine
DX: D72.829 Elevated white blood cell count, unspecified (principal)
CPT/HCPCS: 36415; 85025

== ENCOUNTER → 2021-04-18 12:01 | Outpatient (CLI) | payer OTHER, MEDICAID, SELFPAY ==
[2021-04-18 13:13] LABS: Alanine Aminotransferase 38 IU/L (<50); Albumin 4.8 g/dL (3.5-5.0); Albumin Globulin Ratio 1.5 (1.0-2.8); Alkaline Phosphatase 97 U/L (38-126); Aspartate Aminotransferase 42 IU/L (17-59); BUN Creatinine Ratio 19.5 (6-22); Bilirubin Total 0.6 mg/dL (0.2-1.3); Blood Urea Nitrogen 17 mg/dL (9-20); Calcium 10.2 mg/dL (8.4-10.2); Carbon Dioxide 30 mmol/L (22-32); Chloride 102 mmol/L (98-107); Cholesterol 172 mg/dL (140-199); Estimated Glomerular Filt Rate > 60.0 mL/min (>60); Globulin 3.3 g/dL (1.7-4.1); Glucose 104 mg/dL (70-100); HDL Cholesterol 49 mg/dL (40-60); HEMOLYSIS < 15 (0-50); LDL Cholesterol Calculated 109 mg/dL (<100); Potassium 5.3 mmol/L (3.4-5.1); Sodium 139 mmol/L (137-145); Total Protein 8.1 g/dL (6.3-8.2); Triglycerides 70 mg/dL (35-150)
== END ==
PROVIDERS: PCP Family Medicine; Referring Provider Family Medicine; Visit Provider Family Medicine
DX: I10 Essential (primary) hypertension (principal); M54.50 Low back pain, unspecified
CPT/HCPCS: 36415; 80053; 80061

== ENCOUNTER → 2021-09-04 15:17 | Outpatient (CLI) | payer OTHER, MEDICAID, SELFPAY ==
[2021-09-04 16:03] LABS: Influenza A - CEPHEID Flu A NEGATIVE (NEGATIVE); Influenza B - CEPHEID Flu B NEGATIVE (NEGATIVE)
== END ==
PROVIDERS: PCP Family Medicine; Visit Provider Physician Assistant
DX: J06.9 Acute upper respiratory infection, unspecified (principal)
CPT/HCPCS: 87502

== ENCOUNTER → 2021-09-22 08:28 | Outpatient (CLI) | payer OTHER, MEDICAID, SELFPAY | PROVIDERS: PCP Family Medicine; Visit Provider Physician Assistant | DX: J02.9 Acute pharyngitis, unspecified (principal) | CPT/HCPCS: 87070; 87880 ==

== ENCOUNTER 2022-01-21 22:38 | Emergency (ER) | payer OTHER, MEDICAID, SELFPAY ==
[2022-01-21 22:49] VITALS: BP 154/73; PULSE 141; RESP 103; TEMP 39.4; O2SAT 97; BMI 34.7
--- NOTE | 2022-01-21 22:55 | DI.RAD.S_ITS ---
PROCEDURE: XR CHEST 1V INDICATIONS: suspected sepsis TECHNIQUE: One view of the chest was acquired. COMPARISON: [facility], CR, XR CHEST 1 VIEW, 04/30/2019, 16:13. FINDINGS: Surgical changes and devices: None. Lungs and pleura: Lungs are clear. No pleural effusions or pneumothorax. Mediastinum: Mediastinal contours appear normal. Heart size is normal. Bones and chest wall: No suspicious bony lesions. Overlying soft tissues appear unremarkable. IMPRESSION: 1. No acute cardiopulmonary disease. Dictated by: Ifeanyi Khanna M.D. on 01/22/2022 at 0:47 Approved by: Ifeanyi Khanna M.D. on 01/22/2022 at 0:51
[2022-01-21] MEDS: SODIUM CHLORIDE 0.9% 1,000 ML 1000 ML IV (23:08)
[2022-01-21 23:09] LABS: Add Manual Diff / Slide Review NO; Basophils Absolute Auto 100 /uL (0-100); Basophils Percent Auto 0.4 % (0-2); Eosinophils Absolute Auto 100 /uL (0-450); Eosinophils Percent Auto 0.6 % (2-4); Hematocrit 45.1 % (41-53); Hemoglobin 15.3 g/dL (13.5-17.5); Lymphocytes Absolute Auto 1100 /uL (1100-4500); Lymphocytes Percent Auto 9.4 % (25-40); Mean Corpuscular Hemoglobin 30.2 PG (26-34); Mean Corpuscular Volume 88.7 fL (80-100); Monocytes Absolute Auto 700 /uL (0-900); Monocytes Percent Auto 5.9 % (3-14); Neutrophils Absolute Auto 10000 /uL (1500-7000); Neutrophils Percent Auto 83.7 % (50-75); Platelet Count 262 X10^3/uL (150-400); Red Blood Cell Count 5.08 X10^6/uL (4.5-5.9); Red Cell Distribution Width 12.4 % (11.6-14.8)
[2022-01-21 23:13] VITALS: BP 134/66; PULSE 109; RESP 18; O2SAT 95
[2022-01-21 23:17] LABS: INR 1.1 (0.9-1.3); Prothrombin Time 12.4 SECONDS (10.1-12.7)
[2022-01-21 23:20] LABS: PTT Partial Thromboplastin Tim 29 SECONDS (26-36)
[2022-01-21 23:21] LABS: Lactate (Lactic Acid) 1.6 mmol/L (0.7-2.1)
[2022-01-21 23:22] LABS: Alanine Aminotransferase 35 IU/L (<50); Albumin 4.5 g/dL (3.5-5.0); Albumin Globulin Ratio 1.3 (1.0-2.8); Alkaline Phosphatase 121 U/L (38-126); Aspartate Aminotransferase 30 IU/L (17-59); BUN Creatinine Ratio 13.8 (6-22); Bilirubin Total 0.4 mg/dL (0.2-1.3); Blood Urea Nitrogen 13 mg/dL (9-20); Calcium 9.5 mg/dL (8.4-10.2); Carbon Dioxide 24 mmol/L (22-32); Chloride 102 mmol/L (98-107); Estimated Glomerular Filt Rate > 60 mL/min (>60); Globulin 3.4 g/dL (1.7-4.1); Glucose 171 mg/dL (70-100); HEMOLYSIS < 15 (0-50); Lipase 100 U/L (23-300); Potassium 4.2 mmol/L (3.4-5.1); Sodium 136 mmol/L (137-145); Total Protein 7.9 g/dL (6.3-8.2)
[2022-01-21 23:38] LABS: Procalcitonin 0.09 ng/mL (<0.5)
[2022-01-21 23:55] LABS: Influenza A - CEPHEID Flu A POSITIVE (NEGATIVE); Influenza B - CEPHEID Flu B NEGATIVE (NEGATIVE); Respiratory Syncytial Virus Negative (Negative)
[2022-01-21 23:58] LABS: COVID-19 CEPHEID 4-PLEX PCR Negative (Negative)
--- NOTE | 2022-01-22 00:17 | ED_ITS ---
HPI - General Adult General Chief complaint: Upper Respiratory Symptoms Stated complaint: fever Time Seen by Provider: 01/22/22 00:17 Source: patient Mode of arrival: Ambulatory History of Present Illness HPI narrative: 46-year-old gentleman with a history of hypertension, hyperlipidemia, hyperglycemia, seasonal allergies comes in complaining of upper respiratory symptoms. Yesterday noticed some scratchiness in his throat figured it was his seasonal allergies by the evening felt that it was getting worse did not go to work today and at 2 this afternoon developed a fever as high as 103.2. Talked to his primary care doctor who recommended emergency department evaluation. Complains of mild headache, light sensitivity, dry cough, myalgias and general malaise. He is not had any vomiting, abdominal pain, constipation or diarrhea. He has noted no rashes. Related Data Home Medications Medication Instructions Recorded Confirmed azelastine 137 mcg (0.1 %) nasal 2 spray intranasal BID 09/25/21 09/25/21 spray aerosol fluticasone propionate 110 1 puff inhalation BID 09/25/21 09/25/21 mcg/actuation HFA aerosol inhaler (Flovent HFA) fluticasone propionate 50 1 spray intranasal DAILY 09/25/21 09/25/21 mcg/actuation nasal spray,suspension Previous Rx's Medication Instructions Recorded lisinopril 20 mg tablet 20 mg PO DAILY #90 tabs 01/21/21 prednisone 20 mg tablet 40 mg PO DAILY #10 tabs 09/25/21 sertraline 100 mg tablet 100 mg PO BID #180 tabs 09/30/21 benzonatate 200 mg capsule 200 mg PO BID-TID PRN cough #20 01/22/22 caps Allergies Allergy/AdvReac Type Severity Reaction Status Date / Time Penicillins Allergy Verified 09/25/21 10:26 Review of Systems Review of Systems Narrative: Remainder of complete review of systems is otherwise unremarkable except for that included in the HPI. Patient History Medical History (Updated 01/22/22 @ 00:32 by Chuyita Gonzalez MD) Borderline hyperlipidemia Depression Generalized anxiety disorder HTN (hypertension) Hyperglycemia Social History Smoking Status: Current every day smoker alcohol intake: former (Quit 2 yrs ago 2018) Smoking Status: Current every day smoker Substance Use Type: does not use Exam Initial Vital Signs Initial Vital Signs: Vital Signs Temperature 103 F H 01/21/22 22:49 Pulse Rate 141 H 01/21/22 22:49 Respiratory Rate 103 H 01/21/22 22:49 Blood Pressure 154/73 H 01/21/22 22:49 Pulse Oximetry 97 01/21/22 22:49 Oxygen Delivery Method 01/21/22 22:49 General: Appears generally unwell but no acute distress, Able to give a complete and coherent history. Well-nourished well-developed HEENT: Moist mucous membranes, bilaterally injected sclera with reactive pupils, Neck: No JVD, supple, no cervical adenopathy Respiratory: Lungs are clear to auscultation, no wheezing no rales no rhonchi. Full and symmetrical air movement Cardiac: Regular rate and rhythm no murmurs no bruits Abdomen: Soft, nontender, good bowel tones, no flank pain Skin: Warm and dry, no rashes Neurologic: Grossly neurologically intact with no obvious asymmetries or abnormalities Extremities: No trauma, well perfused Psych: Cooperative, appropriate insight and affect Course Orders Ordered: ED Orders 01/21/22 22:55 XR chest 1V Stat EKG-12 Lead Stat RT Consult Eval and Treat NOW 01/21/22 22:59 Complete Blood Count AUTO DIFF Stat Comprehensive Metabolic Panel Stat Lactate (Lactic Acid) Stat Lipase Stat Partial Thromboplastin Time Stat Procalcitonin Stat Prothrombin Time INR Stat 01/21/22 23:05 Covid-19 + FLU A/B + RSV - PCR Stat 01/21/22 23:20 Blood Culture Stat Benzonatate (Benzonatate 100 Mg Capsule) 100 mg PO NOW ONE Stop: 01/22/22 00:28 Ondansetron HCl (Ondansetron 4 Mg/2 Ml Inj) 4 mg IV NOW PRN PRN Reason: Nausea And Vomiting Ondansetron HCl (Ondansetron 4 Mg Odt) 4 mg SL NOW PRN PRN Reason: Nausea And Vomiting Discontinued Medications Sodium Chloride (Normal Saline 0.9%) 1,000 mls @ 1,000 mls/hr IV BOLUS ONE Stop: 01/21/22 23:53 Last Admin: 01/21/22 23:08 Dose: 1,000 mls/hr Documented By: MCKAY Vital Signs Vital signs: Vital Signs - 8 hr 01/21/22 22:49 01/21/22 23:13 Temperature 103 F H Pulse Rate 141 H 109 H Respiratory Rate 103 H 18 Blood Pressure 154/73 H 134/66 Pulse Oximetry 97 95 Oxygen Delivery Method Room Air Room Air Medical Decision Making Lab Data Result diagrams: 01/21/22 22:59 01/21/22 22:59 Labs: Lab Results 01/21/22 01/21/22 01/21/22 Range/Units 22:59 22:59 22:59 WBC 12.0 H (4.5-11.0) X10^3/uL RBC 5.08 (4.5-5.9) X10^6/uL Hgb 15.3 (13.5-17.5) g/dL Hct 45.1 (41-53) % MCV 88.7 (80-100) fL MCH 30.2 (26-34) PG MCHC 34.0 (30-36) % RDW 12.4 (11.6-14.8) % Plt Count 262 (150-400) X10^3/uL Neut % (Auto) 83.7 H (50-75) % Lymph % (Auto) 9.4 L (25-40) % [place] % (Auto) 5.9 (3-14) % Eos % (Auto) 0.6 L (2-4) % Baso % (Auto) 0.4 (0-2) % Neut # (Auto) 77837 H (6015-9247) /uL Lymph # (Auto) 1100 (2782-5377) /uL [place] # (Auto) 700 (0-900) /uL Eos # (Auto) 100 (0-450) /uL Baso # (Auto) 100 (0-100) /uL PT 12.4 (10.1-12.7) SECONDS INR 1.1 (0.9-1.3) APTT 29 (26-36) SECONDS Sodium 136 L (137-145) mmol/L Potassium 4.2 (3.4-5.1) mmol/L Chloride 102 (98-107) mmol/L Carbon Dioxide 24 (22-32) mmol/L BUN 13 (9-20) mg/dL Creatinine 0.94 (0.66-1.25) mg/dL Estimated GFR > 60 (>60) mL/min BUN/Creatinine Ratio 13.8 (6-22) Glucose 171 H (70-100) mg/dL Lactate (0.7-2.1) mmol/L Calcium 9.5 (8.4-10.2) mg/dL Total Bilirubin 0.4 (0.2-1.3) mg/dL AST 30 (17-59) IU/L ALT 35 (<50) IU/L Alkaline Phosphatase 121 (38-126) U/L Total Protein 7.9 (6.3-8.2) g/dL Albumin 4.5 (3.5-5.0) g/dL Globulin 3.4 (1.7-4.1) g/dL Albumin/Globulin Ratio 1.3 (1.0-2.8) Lipase 100 (23-300) U/L Procalcitonin 0.09 (<0.5) ng/mL SARS-CoV-2 (PCR) (Negative) Influenza A (RT-PCR) (NEGATIVE) Influenza B (RT-PCR) (NEGATIVE) RSV (PCR) (Negative) 01/21/22 01/21/22 Range/Units 22:59 23:05 WBC (4.5-11.0) X10^3/uL RBC (4.5-5.9) X10^6/uL Hgb (13.5-17.5) g/dL Hct (41-53) % MCV (80-100) fL MCH (26-34) PG MCHC (30-36) % RDW (11.6-14.8) % Plt Count (150-400) X10^3/uL Neut % (Auto) (50-75) % Lymph % (Auto) (25-40) % [place] % (Auto) (3-14) % Eos % (Auto) (2-4) % Baso % (Auto) (0-2) % Neut # (Auto) (9309-7142) /uL Lymph # (Auto) (2380-1295) /uL [place] # (Auto) (0-900) /uL Eos # (Auto) (0-450) /uL Baso # (Auto) (0-100) /uL PT (10.1-12.7) SECONDS INR (0.9-1.3) APTT (26-36) SECONDS Sodium (137-145) mmol/L Potassium (3.4-5.1) mmol/L Chloride (98-107) mmol/L Carbon Dioxide (22-32) mmol/L BUN (9-20) mg/dL Creatinine (0.66-1.25) mg/dL Estimated GFR (>60) mL/min BUN/Creatinine Ratio (6-22) Glucose (70-100) mg/dL Lactate 1.6 (0.7-2.1) mmol/L Calcium (8.4-10.2) mg/dL Total Bilirubin (0.2-1.3) mg/dL AST (17-59) IU/L ALT (<50) IU/L Alkaline Phosphatase (38-126) U/L Total Protein (6.3-8.2) g/dL Albumin (3.5-5.0) g/dL Globulin (1.7-4.1) g/dL Albumin/Globulin Ratio (1.0-2.8) Lipase (23-300) U/L Procalcitonin (<0.5) ng/mL SARS-CoV-2 (PCR) Negative (Negative) Influenza A (RT-PCR) Flu a positive H (NEGATIVE) Influenza B (RT-PCR) Flu b negative (NEGATIVE) RSV (PCR) Negative (Negative) MDM Narrative Medical decision making narrative: 46-year-old gentleman with influenza a. Clinical exam does not suggest bacterial superinfection. There is no evidence of congestive heart failure acute coronary syndrome, pneumothorax or alternate explanation for his current symptoms. Is nontoxic saturating in the upper 90s is able to eat and drink. Reviewed anticipated course of influenza. He is given a prescription for benzonatate [place]. He is safe for home discharge Discharge Plan Departure Patient Disposition: Home Clinical Impression: Influenza A Instructions: DI for Influenza -- Adult Activity Restrictions/Additional Instructions: Thank you for coming in today You have influenza A. Based on blood work and clinical exam, I am not seeing any additional concerns for bacterial infection, heart failure, heart attack like symptoms or syndrome or alternate explanations for your symptoms. Please do expect to have high fevers for 5-7 days and body aches and misery. Using 400 mg of ibuprofen (2 wuhk-tjg-jllingg pills) and 1 Tylenol every 6 hours can be very helpful in controlling pain. I have also given you a prescription for benzonatate capsules to help suppress the cough. This prescription was electronically transmitted to [facility] in [place]. If you find that you are getting worse or develop any new symptoms, please feel free to return to the emergency department for further evaluation. Prescriptions: New benzonatate 200 mg capsule 200 mg PO BID-TID PRN (Reason: cough) Qty: 20 0RF No Action lisinopril 20 mg tablet 20 mg PO DAILY Qty: 90 1RF sertraline 100 mg tablet 100 mg PO BID Qty: 180 3RF azelastine 137 mcg (0.1 %) aerosol,spray 2 spray intranasal BID Rx Instructions: administer into each nostril fluticasone propionate 50 mcg/actuation spray,suspension 1 spray intranasal DAILY Rx Instructions: administer into each nostril fluticasone propionate [Flovent HFA] 110 mcg/actuation HFA aerosol inhaler 1 puff inhalation BID prednisone 20 mg tablet 40 mg PO DAILY Qty: 10 0RF Referrals: Terry Huerta, [Primary Care Provider] -
[2022-01-22] MEDS: BENZONATATE 100 MG CAPSULE PO (01:02)
== END 2022-01-22 01:04 | disposition home or self-care (01) ==
PROVIDERS: Emergency Provider Emergency Medicine; PCP Family Medicine
DX: J10.1 Influenza due to other identified influenza virus with other respiratory manifestations (principal); Z20.822 Contact with and (suspected) exposure to COVID-19
CPT/HCPCS: 0241U; 36415; 71045; 80053; 83605; 83690; 84145; 85025; 85610; 85730; 87040; 96360; 96361; 99284

== ENCOUNTER → 2022-05-19 09:31 | Outpatient (CLI) | payer OTHER, MEDICAID, SELFPAY ==
[2022-05-19 10:27] LABS: Add Manual Diff / Slide Review NO; Basophils Absolute Auto 0 /uL (0-100); Basophils Percent Auto 0.5 % (0-2); Eosinophils Absolute Auto 400 /uL (0-450); Eosinophils Percent Auto 5.5 % (2-4); Hematocrit 43.9 % (41-53); Hemoglobin 15.4 g/dL (13.5-17.5); Lymphocytes Absolute Auto 2400 /uL (1100-4500); Lymphocytes Percent Auto 31.6 % (25-40); Mean Corpuscular HGB Conc 35.1 % (30-36); Mean Corpuscular Hemoglobin 31.1 PG (26-34); Mean Corpuscular Volume 88.8 fL (80-100); Monocytes Absolute Auto 500 /uL (0-900); Monocytes Percent Auto 5.9 % (3-14); Neutrophils Absolute Auto 4400 /uL (1500-7000); Neutrophils Percent Auto 56.5 % (50-75); Platelet Count 270 X10^3/uL (150-400); Red Blood Cell Count 4.95 X10^6/uL (4.5-5.9); Red Cell Distribution Width 12.4 % (11.6-14.8); White Blood Cell Count 7.7 X10^3/uL (4.5-11.0)
[2022-05-19 10:57] LABS: Alanine Aminotransferase 35 IU/L (<50); Albumin 4.3 g/dL (3.5-5.0); Albumin Globulin Ratio 1.3 (1.0-2.8); Alkaline Phosphatase 101 U/L (38-126); Aspartate Aminotransferase 34 IU/L (17-59); BUN Creatinine Ratio 12.1 (6-22); Bilirubin Total 0.6 mg/dL (0.2-1.3); Blood Urea Nitrogen 11 mg/dL (9-20); Calcium 9.4 mg/dL (8.4-10.2); Carbon Dioxide 29 mmol/L (22-32); Chloride 102 mmol/L (98-107); Cholesterol 173 mg/dL (140-199); Estimated Glomerular Filt Rate > 60 mL/min (>60); Globulin 3.4 g/dL (1.7-4.1); Glucose 114 mg/dL (70-100); HDL Cholesterol 49 mg/dL (40-60); HEMOLYSIS < 15 (0-50); LDL Cholesterol Calculated 112 mg/dL (<100); Sodium 138 mmol/L (137-145); Total Protein 7.7 g/dL (6.3-8.2); Triglycerides 62 mg/dL (35-150)
[2022-05-19 11:28] LABS: TSH w/ Reflex to FT4 0.16 uIU/mL (0.47-4.68)
[2022-05-19 12:49] LABS: Free T4, Direct Thyroxine 1.14 ng/dL (0.78-2.19)
[2022-05-20 08:09] LABS: Labcorp Hemoglobin (Hb) A1c 5.6 % (4.8-5.6)
== END ==
PROVIDERS: PCP Family Medicine; Referring Provider Family Medicine; Visit Provider Family Medicine
DX: E78.5 Hyperlipidemia, unspecified (principal); F32.A Depression, unspecified; R73.9 Hyperglycemia, unspecified; Z00.00 Encounter for general adult medical examination without abnormal findings
CPT/HCPCS: 36415; 80053; 80061; 83036; 84439; 84443; 85025

== ENCOUNTER 2022-06-27 16:03 | Emergency (ER) | payer OTHER, SELFPAY ==
[2022-06-27 16:07] VITALS: BP 131/91; PULSE 85; RESP 18; TEMP 36.8; O2SAT 97; BMI 35.3
[2022-06-27 17:08] LABS: Alanine Aminotransferase 33 IU/L (<50)
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
[2022-06-29 00:07] LABS: Hepatitis B Surf AB Quant 3.3 mIU/mL (Immunity>9.9)
== END 2022-06-27 19:21 | disposition home or self-care (01) ==
PROVIDERS: Emergency Medicine; Emergency Provider Emergency Medicine; PCP Family Medicine
DX: Z77.21 Contact with and (suspected) exposure to potentially hazardous body fluids (principal); Y99.0 Civilian activity done for income or pay
CPT/HCPCS: 36415; 80074; 84460; 86706; 87535; 87538; 99282; 99283

== ENCOUNTER → 2022-11-16 09:54 | Outpatient (CLI) | payer OTHER, SELFPAY ==
[2022-11-16 11:04] LABS: Influenza A - CEPHEID Flu A NEGATIVE (NEGATIVE); Influenza B - CEPHEID Flu B NEGATIVE (NEGATIVE); Respiratory Syncytial Virus Negative (Negative)
[2022-11-16 11:06] LABS: COVID-19 CEPHEID 4-PLEX PCR Negative (Negative)
== END ==
PROVIDERS: PCP Family Medicine; Visit Provider Physician Assistant
DX: R05.1 Acute cough (principal)
CPT/HCPCS: 0241U

== ENCOUNTER → 2022-12-01 19:08 | Outpatient (CLI) | payer OTHER, SELFPAY ==
[2022-12-01 20:24] LABS: COVID-19 CEPHEID 4-PLEX PCR Negative (Negative); Influenza A - CEPHEID Flu A NEGATIVE (NEGATIVE); Influenza B - CEPHEID Flu B NEGATIVE (NEGATIVE); Respiratory Syncytial Virus Negative (Negative)
== END ==
PROVIDERS: PCP Family Medicine; Visit Provider Student in an Organized Health Care Education/Training Program
DX: R05.1 Acute cough (principal); J02.9 Acute pharyngitis, unspecified
CPT/HCPCS: 0241U; 87070

== ENCOUNTER → 2024-01-10 09:05 | Outpatient (CLI) | payer OTHER, SELFPAY ==
[2024-01-10 10:22] LABS: Add Manual Diff / Slide Review NO; Basophils Absolute Auto 0 /uL (0-100); Basophils Percent Auto 0.3 % (0-2); Eosinophils Absolute Auto 400 /uL (0-450); Eosinophils Percent Auto 4.2 % (2-4); Hematocrit 46.9 % (41-53); Hemoglobin 15.8 g/dL (13.5-17.5); Lymphocytes Absolute Auto 4200 /uL (1100-4500); Lymphocytes Percent Auto 40.6 % (25-40); Mean Corpuscular HGB Conc 33.8 % (30-36); Mean Corpuscular Hemoglobin 30.3 PG (26-34); Mean Corpuscular Volume 89.7 fL (80-100); Monocytes Absolute Auto 600 /uL (0-900); Monocytes Percent Auto 5.6 % (3-14); Neutrophils Absolute Auto 5100 /uL (1500-7000); Neutrophils Percent Auto 49.3 % (50-75); Platelet Count 286 X10^3/uL (150-400); Red Blood Cell Count 5.23 X10^6/uL (4.5-5.9); Red Cell Distribution Width 12.5 % (11.6-14.8); White Blood Cell Count 10.5 X10^3/uL (4.5-11.0)
[2024-01-10 10:50] LABS: Alanine Aminotransferase 40 IU/L (<50); Albumin 4.3 g/dL (3.5-5.0); Albumin Globulin Ratio 1.3 (1.0-2.8); Alkaline Phosphatase 117 U/L (38-126); Aspartate Aminotransferase 38 IU/L (17-59); BUN Creatinine Ratio 17.2 (6-22); Bilirubin Total 0.7 mg/dL (0.2-1.3); Blood Urea Nitrogen 17 mg/dL (9-20); Calcium 9.7 mg/dL (8.4-10.2); Carbon Dioxide 27 mmol/L (22-32); Chloride 103 mmol/L (98-107); Cholesterol 201 mg/dL (140-199); Estimated Glomerular Filt Rate > 60 mL/min (>60); Globulin 3.4 g/dL (1.7-4.1); Glucose 109 mg/dL (70-100); HDL Cholesterol 46 mg/dL (40-60); HEMOLYSIS < 15 (0-50); LDL Cholesterol Calculated 140 mg/dL (<100); Potassium 4.7 mmol/L (3.4-5.1); Sodium 135 mmol/L (137-145); Total Protein 7.7 g/dL (6.3-8.2); Triglycerides 77 mg/dL (35-150)
[2024-01-10 11:22] LABS: TSH w/ Reflex to FT4 2.07 uIU/mL (0.47-4.68)
[2024-01-17 08:14] LABS: Percent Free Testosterone 1.69 % (1.50-4.20); Testosterone Free 8.74 ng/dL (5.00-21.00)
== END ==
PROVIDERS: PCP Family Medicine; Referring Provider Family Medicine; Visit Provider Family Medicine
DX: G47.00 Insomnia, unspecified (principal); E78.5 Hyperlipidemia, unspecified; F41.1 Generalized anxiety disorder; I10 Essential (primary) hypertension; R53.82 Chronic fatigue, unspecified; R73.9 Hyperglycemia, unspecified; F34.1 Dysthymic disorder
CPT/HCPCS: 36415; 80053; 80061; 84402; 84403; 84443; 85025

== ENCOUNTER 2024-07-01 15:01 | Emergency (ER) | payer OTHER, SELFPAY ==
[2024-07-01] VITALS (7 sets, daily range): BP systolic 122–136; BP diastolic 73–82; PULSE 91–130; RESP 18–23; TEMP 36.8; O2SAT 97–99; BMI 37.6
--- NOTE | 2024-07-01 15:10 | EKG_ITS ---
[facility] [address] [address] Test Date: 2024-07-01 Pat Name: Andre Salas Department: [facility] Room: Gender: Male Food And Beverage Assistant: CELINE : 1975 Requested By: Order Number: [id number] Reading MD: Vincent Cee MD Measurements Intervals [place] Rate: 107 P: 34 AR: 164 QRS: 23 QRSD: 86 T: 38 QT: 316 QTc: 421 Interpretive Statements Sinus tachycardia Electronically Signed On 07-02-2024 7:28:23 PDT by Vincent Cee MD
--- NOTE | 2024-07-01 15:10 | DI.RAD.S_ITS ---
PROCEDURE: XR CHEST 1V INDICATIONS: Shortness of breath TECHNIQUE: One view of the chest was acquired. COMPARISON: [facility], CR, XR CHEST 1V, 01/21/2022, 23:21. FINDINGS: Surgical changes and devices: None. Lungs and pleura: No semiupright Mediastinum: Mediastinal contours appear normal. Heart size is normal. Bones and chest wall: No suspicious bony lesions. Overlying soft tissues appear unremarkable. IMPRESSION: No significant portable chest abnormality is seen. Dictated by: Dangelo Weinberg M.D. on 07/01/2024 at 15:36 Approved by: Dangelo Weinberg M.D. on 07/01/2024 at 15:37
[2024-07-01 15:36] LABS: Add Manual Diff / Slide Review NO; Basophils Absolute Auto 100 /uL (0-100); Basophils Percent Auto 0.6 % (0-2); Eosinophils Absolute Auto 300 /uL (0-450); Eosinophils Percent Auto 1.7 % (2-4); Hematocrit 47.9 % (41-53); Hemoglobin 16.6 g/dL (13.5-17.5); Lymphocytes Absolute Auto 3400 /uL (1100-4500); Lymphocytes Percent Auto 22.2 % (25-40); Mean Corpuscular HGB Conc 34.7 % (30-36); Mean Corpuscular Hemoglobin 30.6 PG (26-34); Mean Corpuscular Volume 88.1 fL (80-100); Monocytes Absolute Auto 900 /uL (0-900); Neutrophils Absolute Auto 10600 /uL (1500-7000); Neutrophils Percent Auto 69.5 % (50-75); Platelet Count 289 X10^3/uL (150-400); Red Blood Cell Count 5.44 X10^6/uL (4.5-5.9); Red Cell Distribution Width 12.6 % (11.6-14.8); White Blood Cell Count 15.2 X10^3/uL (4.5-11.0)
[2024-07-01 15:44] LABS: INR 1.2 (0.9-1.3); Prothrombin Time 13.3 SECONDS (9.4-12.5)
[2024-07-01 15:48] LABS: Alanine Aminotransferase 39 IU/L (<50); Albumin 4.7 g/dL (3.5-5.0); Albumin Globulin Ratio 1.3 (1.0-2.8); Alkaline Phosphatase 114 U/L (38-126); Aspartate Aminotransferase 42 IU/L (17-59); BUN Creatinine Ratio 17.4 (6-22); Bilirubin Total 0.8 mg/dL (0.2-1.3); Blood Urea Nitrogen 20 mg/dL (9-20); Calcium 9.7 mg/dL (8.4-10.2); Carbon Dioxide 23 mmol/L (22-32); Chloride 104 mmol/L (98-107); Estimated Glomerular Filt Rate > 60 mL/min (>60); Globulin 3.6 g/dL (1.7-4.1); Glucose 155 mg/dL (70-99); HEMOLYSIS 28 (0-50); Lactate (Lactic Acid) 1.1 mmol/L (0.7-2.1); Potassium 4.5 mmol/L (3.4-5.1); Sodium 137 mmol/L (137-145); Total Protein 8.3 g/dL (6.3-8.2)
[2024-07-01 16:00] LABS: NT-proBNP (BNP-Adult 18+) < 20 pg/mL (<125); Troponin I < 0.012 ng/mL (0.01-0.034)
--- NOTE | 2024-07-01 16:02 | ED.SOB ---
HPI - SOB/Dyspnea General Chief Complaint: Shortness of Breath/Dyspnea Stated Complaint: urgent care ref, virus and weak Time Seen by Provider: 07/01/24 15:25 History of Present Illness HPI Narrative: Patient is a 48-year-old male history of PTSD sleep apnea presenting today with upper respiratory like symptoms. He reports that he has had symptoms ongoing for the last 1 week. He actually feels like he is starting to feel little bit better but feels just generally fatigued. He had COVID 2 months ago and 2 weeks before that he had a upper respiratory infection. He just feels like he can not quite get well. He denies any significant shortness of breath he was mild sore throat feels like he has more facial congestion now. No significant chest pain abdominal pain nausea or vomiting. He actually says that he was starting to feel little bit better Related Data Home Medications Medication Instructions Recorded Confirmed azelastine 137 mcg (0.1 %) nasal 2 spray intranasal BID 09/25/21 04/07/24 spray bupropion HCl 300 mg 24 hr tablet, 300 mg PO DAILY Anciety 01/09/24 04/07/24 extended release sertraline 100 mg tablet mg PO .AM Anxiety 01/09/24 04/07/24 sertraline 50 mg tablet 50 mg PO .PM Anxiety 01/09/24 04/07/24 doxepin 6 mg tablet 3 - 6 mg PO ONCE PM insomnia 03/20/24 04/07/24 Previous Rx's Medication Instructions Recorded fluticasone propionate 50 1 spray intranasal DAILY #16 grams 07/29/22 mcg/actuation nasal spray,suspension albuterol sulfate 90 mcg/actuation 2 puff inhalation Q4-6H PRN 08/17/22 aerosol inhaler shortness of breath or wheezing #6.7 grams fluticasone propionate 110 1 puff inhalation BID #12 grams 12/02/22 mcg/actuation HFA aerosol inhaler (Flovent HFA) lisinopril 20 mg tablet 20 mg PO DAILY #90 tabs 04/23/24 Allergies Allergy/AdvReac Type Severity Reaction Status Date / Time Penicillins Allergy Verified 04/07/24 13:56 Patient History Medical History URI (upper respiratory infection) Fatigue Insomnia PTSD (post-traumatic stress disorder) History of exposure to infectious disease Obstructive sleep apnea Borderline hyperlipidemia Hyperglycemia Depression Generalized anxiety disorder HTN (hypertension) Social History alcohol intake: former tobacco type: cigarettes and vaping alcohol intake frequency: 0-2 drinks per day Exam Initial Vital Signs Initial Vital Signs: Vital Signs Pulse Rate 97 H 07/01/24 15:07 Respiratory Rate 19 07/01/24 15:07 Pulse Oximetry 98 07/01/24 15:07 GENERAL: Alert very well-appearing 48-year-old male HEENT: Head atraumatic,EOMI, pupils reactive, face symmetric, moist mucous membranes EARS: Tympanic membranes visualized, no erythema or bulging, no hemotympanum PHARYNX: Mild erythema no significant uvula swelling deviation or CARDIOVASCULAR: Regular rate and rhythm without murmurs, rubs or gallops. RESPIRATORY: Breath sounds equal bilaterally, no wheezes rales or rhonchi. ABDOMEN: Soft, nontender. Normoactive bowel sounds all 4 quadrants. No guarding or rebound. EXTREMITIES: Normal range of motion, no clubbing or edema. Neurovascularly intact NEUROLOGICAL: Alert and oriented x4.Normal gait and speech. Cranial nerves II through XII grossly intact. SKIN: Warm, dry, no laceration, no petechiae, no rashes or lesions. Course Orders Ordered: ED Orders 07/01/24 15:10 XR chest 1V Stat EKG-12 Lead Stat Measure peak expiratory flow STAT RT Consult Eval and Treat STAT 07/01/24 15:28 Complete Blood Count AUTO DIFF Stat Comprehensive Metabolic Panel Stat Lactate (Lactic Acid) Stat NT-proBNP (BNP-Adult 18+) Stat Prothrombin Time INR Stat Troponin I Stat 07/01/24 16:31 Ictotest Urine Stat Urine Culture Stat Urine Microscopic Stat Discontinued Medications Sodium Chloride (Normal Saline 0.9%) 1,000 mls @ 1,000 mls/hr IV BOLUS ONE Stop: 07/01/24 17:07 Last Infusion: 07/01/24 17:15 Dose: Infused Documented By: Admin: 07/01/24 16:36 Dose: 1,000 mls/hr Documented By: SB Vital Signs Vital signs: Vital Signs - 8 hr 07/01/24 15:07 07/01/24 15:10 07/01/24 15:28 Temperature 98.3 F Pulse Rate 97 H 130 H 102 H Respiratory Rate 19 20 19 Blood Pressure 133/79 Pulse Oximetry 98 98 97 Oxygen Delivery Method Room Air 07/01/24 15:28 07/01/24 15:30 07/01/24 15:30 Temperature Pulse Rate 97 H Respiratory Rate 23 Blood Pressure 122/76 124/75 Pulse Oximetry 97 Oxygen Delivery Method 07/01/24 16:00 07/01/24 16:00 07/01/24 16:30 Temperature Pulse Rate 118 H Respiratory Rate 22 Blood Pressure 125/82 135/81 Pulse Oximetry 99 Oxygen Delivery Method Room Air 07/01/24 16:30 07/01/24 17:00 07/01/24 17:00 Temperature Pulse Rate 99 H 91 H Respiratory Rate 18 22 Blood Pressure 136/73 Pulse Oximetry 97 97 Oxygen Delivery Method Room Air Room Air MDM - SOB/Dyspnea Lab Data 07/01/24 15:28 07/01/24 15:28 Labs: Lab Results 07/01/24 07/01/24 Range/Units 15:28 16:31 WBC 15.2 H (4.5-11.0) X10^3/uL RBC 5.44 (4.5-5.9) X10^6/uL Hgb 16.6 (13.5-17.5) g/dL Hct 47.9 (41-53) % MCV 88.1 (80-100) fL MCH 30.6 (26-34) PG MCHC 34.7 (30-36) % RDW 12.6 (11.6-14.8) % Plt Count 289 (150-400) X10^3/uL Neut % (Auto) 69.5 (50-75) % Lymph % (Auto) 22.2 L (25-40) % [place] % (Auto) 6.0 (3-14) % Eos % (Auto) 1.7 L (2-4) % Baso % (Auto) 0.6 (0-2) % Neut # (Auto) 27421 H (6404-0358) /uL Lymph # (Auto) 3400 (7847-8078) /uL [place] # (Auto) 900 (0-900) /uL Eos # (Auto) 300 (0-450) /uL Baso # (Auto) 100 (0-100) /uL PT 13.3 H (9.4-12.5) SECONDS INR 1.2 (0.9-1.3) Sodium 137 (137-145) mmol/L Potassium 4.5 (3.4-5.1) mmol/L Chloride 104 (98-107) mmol/L Carbon Dioxide 23 (22-32) mmol/L BUN 20 (9-20) mg/dL Creatinine 1.15 (0.66-1.25) mg/dL Estimated GFR > 60 (>60) mL/min BUN/Creatinine Ratio 17.4 (6-22) Glucose 155 H (70-99) mg/dL Lactate 1.1 (0.7-2.1) mmol/L Calcium 9.7 (8.4-10.2) mg/dL Total Bilirubin 0.8 (0.2-1.3) mg/dL AST 42 (17-59) IU/L ALT 39 (<50) IU/L Alkaline Phosphatase 114 (38-126) U/L Troponin I < 0.012 (0.01-0.034) ng/mL NT-Pro-B Natriuret Pep < 20 (<125) pg/mL Total Protein 8.3 H (6.3-8.2) g/dL Albumin 4.7 (3.5-5.0) g/dL Globulin 3.6 (1.7-4.1) g/dL Albumin/Globulin Ratio 1.3 (1.0-2.8) Ur Bilirubin Confirm Negative (Negative) Urine RBC 0-1/hpf (0-5/HPF) Urine WBC 1-5/hpf (0-5/HPF) Ur Squamous Epith Cells 0-1 /hpf (0-5/HPF) Calcium Oxalate Crystal Occasional H Urine Bacteria Occasional (0-1) (None) Urine Mucus 2+ H (Negative) Ur Culture Indicated? Specimen cultured Vol Urine Centrifuged 10ml (spun) Urine Dip Bedside Urine Glucose Negative Bedside Urine Bilirubin + 1 Bedside Urine Ketone +/- 5 Urine Specific [place] 1.025 Bedside Urine Occult Blood - Negative Bedside Urine pH 5.5 Bedside Urine Protein +/- 15 Bedside Urine Urobilinogen - Negative Bedside Urine Nitrite - Negative Bedside Urine Leukocytes + 70 Esterase Imaging Data Chest x-ray: Radiologist's Impression: PROCEDURE: XR CHEST 1V INDICATIONS: Shortness of breath TECHNIQUE: One view of the chest was acquired. COMPARISON: [facility], CR, XR CHEST 1V, 01/21/2022, 23:21. FINDINGS: Surgical changes and devices: None. Lungs and pleura: No semiupright Mediastinum: Mediastinal contours appear normal. Heart size is normal. Bones and chest wall: No suspicious bony lesions. Overlying soft tissues appear unremarkable. IMPRESSION: No significant portable chest abnormality is seen. Dictated by: Dangelo Weinberg M.D. on 07/01/2024 at 15:36 Approved by: Dangelo Weinberg M.D. on 07/01/2024 at 15:37 ECG Data Attestation: I personally reviewed and interpreted this ECG as follows: Prior ECG tracings: available for review Interpretation: Sinus tachycardia rate 107 AR interval 164 QRS [address] changes no T-wave inversions MDM Narrative Medical decision making narrative: Patient is a relatively healthy 48-year-old male presenting today with upper respiratory symptoms ongoing for about a week. Reports that he is actually feeling better but now having more facial and sinus symptoms. He was not hypoxic was noted to be tachycardic with a it has improved. Work has been reviewed he does have leukocytosis of 15 but lactate is 1.1 Electrolytes are within normal limits no SHADI Troponin is negative BNP less than 20 EKGs shows sinus tachycardia Chest x-ray no acute cardiopulmonary process Patient has no significant respiratory distress he was some mild leukocytosis no evidence of pneumonia. No need for antibiotics. Overall appears well nontoxic. Discharge Plan Departure Patient Disposition: Home Clinical Impression: Upper respiratory infection Instructions: DI for Viral Upper Respiratory Infection -- Adult Activity Restrictions/Additional Instructions: *You have been diagnosed with upper respiratory infection *What to do: At this time no need for antibiotics x-ray is clear *Continue to take medications as directed Tylenol Motrin as needed for pain or fever *Follow up with your primary care provider in 2-3 days or call [phone] *Return to ER if you should have increasing shortness of breath not tolerating fluids or any new, worsening or concerning symptoms Prescriptions: No Action fluticasone propionate 50 mcg/actuation spray,suspension 1 spray intranasal DAILY Qty: 16 3RF Rx Instructions: administer into each nostril albuterol sulfate 90 mcg/actuation HFA aerosol inhaler 2 puff inhalation Q4-6H PRN (Reason: shortness of breath or wheezing) Qty: 6.7 6RF fluticasone propionate [Flovent HFA] 110 mcg/actuation HFA aerosol inhaler 1 puff inhalation BID Qty: 12 2RF lisinopril 20 mg tablet 20 mg PO DAILY Qty: 90 3RF doxepin 6 mg tablet 3 - 6 mg PO ONCE PM azelastine 137 mcg (0.1 %) aerosol,spray 2 spray intranasal BID Rx Instructions: administer into each nostril bupropion HCl 300 mg tablet extended release 24 hr 300 mg PO DAILY sertraline 50 mg tablet 50 mg PO .PM sertraline 100 mg tablet PO .AM Referrals: Terry Huerta DO [Primary Care Provider] - Stand Alone Forms: Patient Portal/API/Survey
[2024-07-01] MEDS: SODIUM CHLORIDE 0.9% 1,000 ML 1000 ML IV (16:36)
[2024-07-01 16:58] LABS: Bacteria Urine Occasional (0-1); Calcium Oxalate Crystals Urine Occasional; Culture Indicated Urine Specimen Cultured; Ictotest Urine Negative (Negative); Mucus Urine 2+ (Negative); RBC Urine 0-1/HPF (0-5/HPF); Squamous Epithelial Cell Urine 0-1 /HPF (0-5/HPF); Urine Volume 10mL (spun); WBC Urine 1-5/HPF (0-5/HPF)
== END 2024-07-01 17:19 | disposition home or self-care (01) ==
PROVIDERS: Emergency Provider Emergency Medicine; PCP Family Medicine
DX: J06.9 Acute upper respiratory infection, unspecified (principal); R00.0 Tachycardia, unspecified; F17.210 Nicotine dependence, cigarettes, uncomplicated
CPT/HCPCS: 36415; 71045; 80053; 81003; 81015; 83605; 83880; 84484; 85025; 85610; 87086; 93005; 93010; 96360; 99284

== ENCOUNTER → 2024-07-30 06:43 | Outpatient (CLI) | payer OTHER, SELFPAY ==
--- NOTE | 2024-07-30 07:35 | DI.ECHO.S_ITS ---
[facility]+ [facility] : : [address] : : [place] : : [id number] : : Phone: [phone] Echocardiogram Report + + :Name: JEN KATHLEEN Study Date: 07/30/2024 Height: 74 in : :[facility] ReadingLocation: Weight: 295 lb : : Gender: Male BSA: 2.6 m2 : :: 1975 Age: 48 yrs BP: 130/84 mmHg: :Reason For Study: EVALUATION : :Ordering Physician: GARRY PRINCE : :T Diana.OMacey Performed By: Noemi Castro : :Referring: GARRY PRINCE T D.OMacey : + + Interpretation Summary The ejection fraction is estimated to be 55-60%. Diastolic parameters suggest probable normal left ventricular diastolic function and normal filling pressures. The right ventricular systolic function is normal. Pulmonary artery pressures cannot be estimated because of the lack of a measurable TR jet velocity. Both atria are normal in size. No significant valvular abnormality. Procedure: A two-dimensional transthoracic echocardiogram with color flow and Doppler was performed. The study quality was technically adequate. Comparison is made with the echocardiogram of 02/16/2019. The patient was in sinus bradycardia with heart rates between 57-80 bpm during the exam. Left Ventricle: The left ventricle is normal in size and wall thickness. The ejection fraction is estimated to be 55-60%. There are no obvious focal wall motion abnormalities noted but poor endocardial definition reduces the sensitivity for the detection of such. Diastolic parameters suggest probable normal left ventricular diastolic function and normal filling pressures. Right Ventricle: The right ventricle is borderline dilated. The right ventricular systolic function is normal. Atria: The left atrial size is normal. Both atria are normal in size. Right atrial size is normal. There is no Doppler evidence for an interatrial shunt. Mitral Valve: There is mild mitral annular calcification. The mitral valve leaflets appear to open well. There is no mitral valve stenosis. There is trace mitral regurgitation. Aortic Valve: The aortic valve opens well. The aortic valve is trileaflet. There is no aortic valve stenosis. No aortic regurgitation is present. Tricuspid Valve: The tricuspid valve leaflets are thin and pliable. There is trace tricuspid regurgitation. Pulmonary artery pressures cannot be estimated because of the lack of a measurable TR jet velocity. Pulmonic Valve: The pulmonic valve is not well seen, but is grossly normal. There is no pulmonic valvular regurgitation. Great Vessels: The aortic root is normal size. The dimensions of the ascending aorta are normal. The IVC is of normal diameter and collapses greater than 50% with a sniff. This suggests a low right atrial pressure of 3 mm Hg. Pericardium/ Pleura There is no pericardial effusion. There is an anterior echo-free space consistent with a fat pad. There is no pleural effusion. MMode/2D Measurements & Calculations LVIDd: 4.6 cm LVOT diam: 2.2 cm LVIDs: 3.2 cm Ao root diam: 3.2 cm FS: 30.4 % asc Aorta Diam: 2.8 cm IVSd: 0.93 cm Ao Arch Diam (Prox Trans): 2.7 cm LVPWd: 0.83 cm LV baig. diameter/BSA (cm/m^2): 1.8 LV sys. diameter/BSA (cm/m^2): 1.2 LA A2 area: 20.4 cm2 RA long axis: 5.5 cm LA A4 area: 17.6 cm2 RA area: 18.7 cm2 LA length (vol): 5.4 cm RA vol: 54.4 ml LA vol: 56.0 ml RA : 21.2 ml/m2 LA vol index: 21.8 ml/m2 IVC diam: 1.0 cm RVD1 (basal): 4.3 cm RVD2 (mid): 3.8 cm TAPSE: 1.5 cm Doppler Measurements & Calculations Ao V2 max: 116.4 cm/sec LVOT Max Edgardo: 101.1 cm/sec Ao V2 mean: 78.6 cm/sec LV V1 max P.1 mmHg Ao max P.4 mmHg LV V1 VTI: 16.7 cm Ao mean P.8 mmHg RODNEY(I,D): 3.2 cm2 Ao V2 VTI: 20.2 cm RODNEY(V,D): 3.3 cm2 sev ratio: 0.83 RODNEY indexed to BSA (cm^2/m^2): 1.2 MV E max edgardo: 57.2 cm/sec PA V2 max: 93.4 cm/sec MV A max edgardo: 34.5 cm/sec PA V2 mean: 64.8 cm/sec MV E/A: 1.7 PA mean P.9 mmHg Med Peak E' Edgardo: 7.6 cm/sec PA pr(Accel): 39.6 mmHg E/E' med: 7.5 Lat Peak E' Edgardo: 11.3 cm/sec E/E' lat: 5.1 E/e' average: 6.3 MV dec time: 0.18 sec SV(LVOT): 64.1 ml Reading Physician:10:42 AM
== END ==
LOC: ECHO 06:43
PROVIDERS: PCP Family Medicine; Referring Provider Family Medicine; Visit Provider Family Medicine
DX: U09.9 Post COVID-19 condition, unspecified (principal); G93.32 Myalgic encephalomyelitis/chronic fatigue syndrome; I34.81 Nonrheumatic mitral (valve) annulus calcification; I49.5 Sick sinus syndrome
CPT/HCPCS: 93306

== ENCOUNTER → 2024-11-11 14:38 | Outpatient (CLI) | payer OTHER, SELFPAY ==
[2024-11-11 15:32] LABS: Influenza A - CEPHEID Flu A NEGATIVE (NEGATIVE); Influenza B - CEPHEID Flu B NEGATIVE (NEGATIVE)
[2024-11-11 15:43] LABS: COVID-19 CEPHEID 4-PLEX PCR Negative (Negative)
== END ==
PROVIDERS: PCP Family Medicine; Visit Provider Registered Nurse
DX: R05.1 Acute cough (principal)
CPT/HCPCS: 87637

== ENCOUNTER → 2024-11-11 15:11 | Outpatient (CLI) | payer OTHER, SELFPAY ==
--- NOTE | 2024-11-11 15:12 | DI.RAD.S_ITS ---
PROCEDURE: XR CHEST 2V INDICATIONS: Shortness of breath TECHNIQUE: 2 views of the chest were acquired. COMPARISON: [facility], , XR CHEST 1V, 07/01/2024, 15:45. FINDINGS: Surgical changes and devices: None. Lungs and pleura: Lungs are clear. No pleural effusions or pneumothorax. Mediastinum: Mediastinal contours are normal. Heart size is normal. Bones and chest wall: No suspicious bony abnormalities. Soft tissues appear unremarkable. IMPRESSION: No acute cardiopulmonary abnormality is seen. Approved by: Trenton Santizo M.D. on 11/11/2024 at 15:56
== END ==
LOC: RAD 15:12
PROVIDERS: PCP Family Medicine; Referring Provider Registered Nurse; Visit Provider Registered Nurse
DX: R06.02 Shortness of breath (principal); R05.1 Acute cough
CPT/HCPCS: 71046; 87637